=== PATIENT | male | born 1985 | race Caucasian/White ===

== ENCOUNTER 2024-08-15 07:02 | Observation (INO) | payer OTHER, SELFPAY ==
[2024-08-15] VITALS (7 sets, daily range): BP systolic 139–182; BP diastolic 84–109; PULSE 18–94; RESP 15–97; TEMP 36.1–36.8; O2SAT 94–99; BMI 32.6
--- NOTE | 2024-08-15 07:13 | EDS_ITS ---
HPI History of Present Illness Chief Complaint: Substance Abuse Informant: patient Narrative Narrative: 38-year-old male presenting to the emergency room seeking detox from opiates. Patient states he is a daily user of OxyContin. States he has been using regularly for several years. He has had 1 prior attempt to quit on his own. Currently on probation and had a failed drug screen. credit products officer advised him to seek treatment. He states that he is linked with [facility]. He denies any IV drug use or snorting/inhalation. Patient is a tobacco user. He has a history of hypertension. He sees home his family practice. He notes irritability diarrhea shakiness decreased sleep. Patient states he has rare alcohol use. [facility] Medical History (Updated 08/15/24 @ 07:[address] Ian Garcia DO) Hypertension Allergy/AdvReac Type Severity Reaction Status Date / Time No Known Allergies Allergy Verified 08/15/24 07:03 Social History (Updated 08/15/24 @ 07:[address] Ian Garcia DO) Smoking Status: Never smoker substance use type: opiates ROS ROS ED ROS Narrative Shakiness Constitutional Constitutional ED: Reports sweats; Denies chills, fever(s) or weight loss Eyes Eyes: Denies change in vision or diplopia ENT ENT ED: Denies ear pain, rhinorrhea or sore throat Cardiovascular Cardiovascular: Denies chest pain, orthopnea, palpitations or racing heartbeat Respiratory/Chest Respiratory/Chest: Reports other Details: Chronic cough (tobacco user) ; Denies dyspnea or orthopnea Gastrointestinal Gastrointestinal: Reports diarrhea and other Details: Decreased appetite ; Denies abdominal pain, nausea or vomiting Genitourinary Genitourinary ED: Denies dysuria, hematuria or urinary frequency Musculoskeletal Musculoskeletal: Denies arthralgias or myalgias Integumentary Denies abscess or rash Neurologic Neurologic: Denies headache(s) or weakness Psychiatric Psychiatric: Reports anxiety and other Details: Irritability ; Denies depression, suicidal ideation or suicidal thoughts Endocrine Endocrinology: Denies polydipsia, polyphagia or polyuria Allergic/Immunologic Allergic/Immunologic ED: Denies mouth swelling, tongue swelling or urticaria EXAM Physical Exam Const Vital Signs: 08/15/24 07:03 Temperature 96.9 F L Temperature Source Temporal Pulse Rate 18 L Respiratory Rate 97 H Blood Pressure 179/104 H Blood Pressure Mean 129 Oxygen Delivery Method Room Air Positive well nourished and well developed General Appearance ED: well developed and NAD HEENT Reports normocephalic, head/scalp atraumatic and moist mucous membranes Eyes PERRL and EOMs intact bilaterally Neck no lymphadenopathy, supple and no JVD Resp normal respiratory effort and clear to auscultation bilaterally Cardio regular rate, regular rhythm and no murmurs GI normal to inspection, nondistended, normoactive bowel sounds and non-tender Palpation: soft Back/Spine no CVA tenderness and normal ROM Extremity normal to inspection General Extremety ED: Negative for edema General Extremity: Negative for edema Neuro oriented x3 and CN's II-XII intact bilaterally Sensorium / Orientation: alert Motor Exam: strength 5/5 throughout Psych mental status grossly normal Mood & Affect: anxious; Negative for depressed or tearful Skin no rashes or lesions noted and no wounds MDM MDM MDM Narrative Medical decision making narrative: Differential diagnosis includes but not limited to alcohol use disorder mixed substance use disorder opiate withdrawal anxiety depression ED screening addiction labs were ordered. Slight elevation in white count is noted which I think is nonspecific. His toxicology is negative an ALT of 122 AST of 74 normal bilirubin. Plan I will speak to the hospitalist regarding potential admission to ramp program History & Record Review Discussion w/independent historian: Patient Lab Data Attestation: I reviewed the patient's lab results. Labs: Laboratory Results - last 24 hr 08/15/24 08/15/24 08/15/24 08:05 08:05 08:15 WBC Cancelled Corrected WBC Cancelled RBC Cancelled Hgb Cancelled Hct Cancelled MCV Cancelled MCH Cancelled MCHC Cancelled RDW Std Deviation Cancelled RDW Coeff of Satnam Cancelled Plt Count Cancelled MPV Cancelled Immature Gran % (Auto) Cancelled Neut % (Auto) Cancelled Lymph % (Auto) Cancelled [place] % (Auto) Cancelled Eos % (Auto) Cancelled Baso % (Auto) Cancelled Absolute Neuts (auto) Cancelled Absolute Lymphs (auto) Cancelled Total Counted Cancelled Neutrophils % (Manual) Cancelled Band Neutrophils % Cancelled Lymphocytes % (Manual) Cancelled Monocytes % (Manual) Cancelled Eosinophils % (Manual) Cancelled Basophils % (Manual) Cancelled Metamyelocytes % Cancelled Myelocytes % Cancelled Promyelocytes % Cancelled Blast Cells % Cancelled Plasma Cell % (Manual) Cancelled Other Cells % Cancelled Nucleated RBC % Cancelled Nucleated RBCs/100 WBC Cancelled Differential Comment Cancelled Diff Path Review Cancelled Hypersegmented Neuts Cancelled Atypical Lymphocytes Cancelled Reactive Lymphocytes Cancelled Smudge Cells Cancelled Toxic Granulation Cancelled Toxic Vacuolation Cancelled Dohle Bodies Cancelled Olive Rods Cancelled Platelet Estimate Cancelled Plt Morphology Comment Cancelled RBC Morphology Cancelled Cancelled Polychromasia Cancelled Hypochromasia Cancelled Basophilic Stippling Cancelled Anisocytosis Cancelled Microcytosis Cancelled Macrocytosis Cancelled Spherocytes Cancelled Sickle Cells Cancelled Target Cells Cancelled Tear Drop Cells Cancelled Ovalocytes Cancelled Stomatocytes Cancelled [place] Bodies Cancelled Oleg Cells Cancelled Bite Cells Cancelled Crenated Cell Cancelled Acanthocytes (Spur) Cancelled Rouleaux Cancelled Schistocytes Cancelled Sodium 140 Potassium 3.7 Chloride 102 Carbon Dioxide 26.0 Anion Gap 12 BUN 9 Creatinine 0.85 Estim Creat Clear Calc 139.10 Est GFR (MDRD) Af Amer 127 Est GFR (MDRD) Non-Af 105 BUN/Creatinine Ratio 10.5 Glucose 120 H Calcium 9.3 Total Bilirubin 0.50 AST 74 H ALT 122 H Alkaline Phosphatase 103 Total Protein 7.3 Albumin 3.9 Globulin 3.4 Albumin/Globulin Ratio 1.1 Urine Opiates Screen NEGATIVE Urine Methadone Screen NEGATIVE Ur Barbiturates Screen NEGATIVE Ur Phencyclidine Scrn NEGATIVE Ur Amphetamines Screen NEGATIVE MDMA (Ecstasy) Screen NEGATIVE U Benzodiazepines Scrn NEGATIVE Urine Cocaine Screen NEGATIVE U Cannabinoids Screen NEGATIVE Ur Drug Screen Comment Ethyl Alcohol < 3.0 08/15/24 08:38 WBC 11.2 H Corrected WBC RBC 5.53 Hgb 17.3 H Hct 49.4 MCV 89.3 MCH 31.3 MCHC 35.0 RDW Std Deviation 41.4 RDW Coeff of Satnam 12.6 Plt Count 356 MPV 8.7 Immature Gran % (Auto) 0.800 Neut % (Auto) 60.6 Lymph % (Auto) 28.0 [place] % (Auto) 8.0 Eos % (Auto) 1.8 Baso % (Auto) 0.8 Absolute Neuts (auto) 6.8 Absolute Lymphs (auto) 3.15 Total Counted Neutrophils % (Manual) Band Neutrophils % Lymphocytes % (Manual) Monocytes % (Manual) Eosinophils % (Manual) Basophils % (Manual) Metamyelocytes % Myelocytes % Promyelocytes % Blast Cells % Plasma Cell % (Manual) Other Cells % Nucleated RBC % 0 Nucleated RBCs/100 WBC Differential Comment Diff Path Review Hypersegmented Neuts Atypical Lymphocytes Reactive Lymphocytes Smudge Cells Toxic Granulation Toxic Vacuolation Dohle Bodies Olive Rods Platelet Estimate Plt Morphology Comment RBC Morphology Polychromasia Hypochromasia Basophilic Stippling Anisocytosis Microcytosis Macrocytosis Spherocytes Sickle Cells Target Cells Tear Drop Cells Ovalocytes Stomatocytes [place] Bodies Oleg Cells Bite Cells Crenated Cell Acanthocytes (Spur) Rouleaux Schistocytes Sodium Potassium Chloride Carbon Dioxide Anion Gap BUN Creatinine Estim Creat Clear Calc Est GFR (MDRD) Af Amer Est GFR (MDRD) Non-Af BUN/Creatinine Ratio Glucose Calcium Total Bilirubin AST ALT Alkaline Phosphatase Total Protein Albumin Globulin Albumin/Globulin Ratio Urine Opiates Screen Urine Methadone Screen Ur Barbiturates Screen Ur Phencyclidine Scrn Ur Amphetamines Screen MDMA (Ecstasy) Screen U Benzodiazepines Scrn Urine Cocaine Screen U Cannabinoids Screen Ur Drug Screen Comment Ethyl Alcohol Discharge Plan Dx/Rx/DC Orders Clinical Impression: Substance use disorder, Opiate withdrawal Disposition Disposition: Acute Care Hospital [facility]
[2024-08-15 08:39] LABS: ALB/GLOB Ratio 1.1 RATIO (0.9-2.4); AST(SGOT) 74 U/L (15-37); Alanine Aminotransfer ALT/SGPT 122 U/L (16-61); Albumin, Serum 3.9 g/dL (3.2-5.0); Alkaline Phosphatase 103 U/L (45-117); Anion Gap 12 (5-15); BUN 9 mg/dL (7-18); BUN/Creat Ratio 10.5 RATIO (10-20); Calcium,Total 9.3 mg/dL (8.5-10.1); Chloride 102 mmol/L (98-107); Creatinine, Serum 0.85 mg/dL (0.70-1.30); EST Glomerular Filtration Rate 105 mL/min (>60); Est Glom Filt Rate - Afr Amer 127 mL/min (>60); Globulin 3.4 g/dL (2.2-4.2); Glucose 120 mg/dL (74-106); Potassium 3.7 mmol/L (3.5-5.1); Protein, Total 7.3 g/dL (6.4-8.2); Sodium Level 140 mmol/L (136-145)
[2024-08-15 08:40] LABS: Alcohol, Blood (Medical)-Serum < 3.0 mg/dL
[2024-08-15 08:41] LABS: Amphetamine Urine VISTA NEGATIVE (<1000 ng/mL); Barbiturate Urine VISTA NEGATIVE (< 200 ng/mL); Benzodiazepine Urine VISTA NEGATIVE (< 200 ng/mL); Cocaine Urine VISTA NEGATIVE (< 300 ng/mL); Ecstacy Urine VISTA NEGATIVE (< 500 ng/mL); Methadone Urine VISTA NEGATIVE (< 300 ng/mL); PCP Urine VISTA NEGATIVE (< 25 ng/mL); THC Urine VISTA NEGATIVE (< 50 ng/mL); Vista UDS pH Range 6
[2024-08-15 08:44] LABS: Absolute Lymphocyte Count 3.15 X10^3/uL (0.83-4.51); Absolute Neutrophil Count 6.8 X10^3/uL (2.0-7.7); Basophil# 0.09 X10^3/uL; Basophil% 0.8 % (0-1); Eosinophils% 1.8 % (0-5); Hematocrit 49.4 % (40-54); Hemoglobin 17.3 g/dL (13.0-16.5); Lymphocyte # 3.15 X10^3/ul (0.83-4.51); Mean Corpuscular Hgb 31.3 pg (27.0-32.0); Mean Corpuscular Volume 89.3 fL (80-94); Mean Platelet Vol. 8.7 fl (6.2-12.0); NRBC Flagged by Analyzer 0 % (0-5); Neutrophil # 6.81 X10^3/uL (2.7-7.7); Neutrophil % 60.6 % (47-70); Platelet Count 356 K/mm3 (150-450); RBC Distribution Width CV 12.6 % (11.6-14.6); RBC Distribution Width SD 41.4 fl (35.1-43.9); Red Blood Count 5.53 M/mm3 (4.6-6.2); White Blood Count 11.2 K/mm3 (4.4-11.0)
--- NOTE | 2024-08-15 08:57 | HP.PCM.HOS_ITS ---
HPI - General General Date of Admission: 08/15/24 Date of Service: 08/24/24 Chief Complaint: Desire for detoxification HPI Narrative KOFI VELASCO, is a 38 M who presents who presented with abdominal cramps tremulousness anxiety as well as diarrhea. Patient admitted to chronic use of opioids?OxyContin. On average he uses almost 40 mg daily. He was referred to the ED by 180. An assessment of acute opioid withdrawal was made patient admitted to regular nursing floor for further management [facility] Medical History (Updated 08/15/24 @ 09:[address] Jass Mahajan MD) Hypertension Home Medications ?Medication ?Instructions ?Recorded ?Last Taken ?Type lisinopril 20 1 tab PO DAILY 08/15/24 Unknown History mg-hydrochlorothiazide 25 mg tablet Allergy/AdvReac Type Severity Reaction Status Date / Time No Known Allergies Allergy Verified 08/15/24 07:03 Social History Smoking Status: Never smoker substance use type: opiates ROS ROS Narrative GENERAL: Cold sweat HEENT: denies headache, sinus congestion, or drainage, dysphagia RESPIRATORY: denies cough, sputum production, shortness of breath, dyspnea on exertion CARDIAC: denies chest pain, palpitations, orthopnea, PND GASTROINTESTINAL: abdominal pain, diarrhea GENITOURINARY: denies dysuria, urgency, frequency, heamaturia EXTREMITY: denies swelling MUSCULOSKELETAL: denies current joint pain or tenderness NEUROLOGIC: denies focal numbness, weakness, tingling HEMATOLOGIC: denies easy bruising and/or hemorrhage INTEGUMENT: denies rashes PSYCHIATRIC: Anxiety Vital Signs Vital Signs Vital Signs: 08/15/24 07:03 Temperature 96.9 F L Temperature Source Temporal Pulse Rate 18 L Respiratory Rate 97 H Blood Pressure 179/104 H Blood Pressure Mean 129 Oxygen Delivery Method Room Air Weight Weight: 103.328 kg Body Mass Index (BMI) 32.6 Physical Exam Narrative GENERAL: cooperative HEENT: Atraumatic; normocephalic EYES; Anicteric, Normal Conjunctiva NECK; supple, normal thyroid, RESPIRATORY: Diminished to auscultation CARDIOVASCULAR: Regular S1 S2, GI: soft, normoactive bowel sounds, : No Renal angle tenderness; EXTREMITIES: No edema, no clubbing, MUSCULOSKELETAL: no muscle wasting NEURO: Awake; no lateralizing signs. SKIN: No Rash PSYCH; Flat affect Results Lab / Micro Data 08/15/24 08:38 08/15/24 08:05 Labs: Laboratory Results - last 24 hr 08/15/24 08:05: WBC Cancelled, Corrected WBC Cancelled, RBC Cancelled, Hgb Cancelled, Hct Cancelled, MCV Cancelled, MCH Cancelled, MCHC Cancelled, RDW Std Deviation Cancelled, RDW Coeff of Satnam Cancelled, Plt Count Cancelled, MPV Cancelled, Immature Gran % (Auto) Cancelled, Neut % (Auto) Cancelled, Lymph % (Auto) Cancelled, [place] % (Auto) Cancelled, Eos % (Auto) Cancelled, Baso % (Auto) Cancelled, Absolute Neuts (auto) Cancelled, Absolute Lymphs (auto) Cancelled, Total Counted Cancelled, Neutrophils % (Manual) Cancelled, Band Neutrophils % Cancelled, Lymphocytes % (Manual) Cancelled, Monocytes % (Manual) Cancelled, Eosinophils % (Manual) Cancelled, Basophils % (Manual) Cancelled, Metamyelocytes % Cancelled, Myelocytes % Cancelled, Promyelocytes % Cancelled, Blast Cells % Cancelled, Plasma Cell % (Manual) Cancelled, Other Cells % Cancelled, Nucleated RBC % Cancelled, Nucleated RBCs/100 WBC Cancelled, Differential Comment Cancelled, Diff Path Review Cancelled, Hypersegmented Neuts Cancelled, Atypical Lymphocytes Cancelled, Reactive Lymphocytes Cancelled, Smudge Cells Cancelled, Toxic Granulation Cancelled, Toxic Vacuolation Cancelled, Dohle Bodies Cancelled, Olive Rods Cancelled, Platelet Estimate Cancelled, Plt Morphology Comment Cancelled, RBC Morphology Cancelled 08/15/24 08:05: RBC Morphology Cancelled, Polychromasia Cancelled, Hypochromasia Cancelled, Basophilic Stippling Cancelled, Anisocytosis Cancelled, Microcytosis Cancelled, Macrocytosis Cancelled, Spherocytes Cancelled, Sickle Cells Cancelled, Target Cells Cancelled, Tear Drop Cells Cancelled, Ovalocytes Cancelled, Stomatocytes Cancelled, [place] Bodies Cancelled, Oleg Cells Cancelled, Bite Cells Cancelled, Crenated Cell Cancelled, Acanthocytes (Spur) Cancelled, Rouleaux Cancelled, Schistocytes Cancelled, Sodium 140, Potassium 3.7, Chloride 102, Carbon Dioxide 26.0, Anion Gap 12, BUN 9, Creatinine 0.85, Estim Creat Clear Calc 139.10, Est GFR (MDRD) Af Amer 127, Est GFR (MDRD) Non-Af 105, BUN/Creatinine Ratio 10.5, Glucose 120 H, Calcium 9.3, Total Bilirubin 0.50, AST 74 H, ALT 122 H, Alkaline Phosphatase 103, Total Protein 7.3, Albumin 3.9, Globulin 3.4, Albumin/Globulin Ratio 1.1, Ethyl Alcohol < 3.0 08/15/24 08:15: Urine Opiates Screen NEGATIVE, Urine Methadone Screen NEGATIVE, Ur Barbiturates Screen NEGATIVE, Ur Phencyclidine Scrn NEGATIVE, Ur Amphetamines Screen NEGATIVE, MDMA (Ecstasy) Screen NEGATIVE, U Benzodiazepines Scrn NEGATIVE, Urine Cocaine Screen NEGATIVE, U Cannabinoids Screen NEGATIVE, Ur Drug Screen Comment 08/15/24 08:38: WBC 11.2 H, RBC 5.53, Hgb 17.3 H, Hct 49.4, MCV 89.3, MCH 31.3, MCHC 35.0, RDW Std Deviation 41.4, RDW Coeff of Satnam 12.6, Plt Count 356, MPV 8.7, Immature Gran % (Auto) 0.800, Neut % (Auto) 60.6, Lymph % (Auto) 28.0, [place] % (Auto) 8.0, Eos % (Auto) 1.8, Baso % (Auto) 0.8, Absolute Neuts (auto) 6.8, Absolute Lymphs (auto) 3.15, Nucleated RBC % 0 Assessment & Plan Assessment/Plan (1) Opiate withdrawal: (2) Hypertension: PLAN: Plan Patient is a 38-year-old gentleman with history of chronic opioid dependence presented with acute opioid withdrawal 1. 1. Acute opioid withdrawal - Patient has been admitted to regular nursing floor, managed buprenorphine taper along with other adjunctive medications for medical stabilization 2. Hypertension ? Blood pressure controlled, home medications continued with dose adjustment as needed 3. Class I obesity with BMI of 32.7 ? Complicating care weight loss advised 4. Tobacco dependence ? Counseled on cessation, offered nicotine patch for tobacco cravings 5. DVT prophylaxis ? Low risk to encourage ambulation Time spent in the patient's overall evaluation,decision-making process, review of diagnostic data, adjustment of management, discussion with other providers, nursing nursing and ancillary staff involved in patient's care documentation, 55 Minutes Charges/Coding Visit Charges Inpatient E&M: 14943 Init Hosp L2
--- NOTE | 2024-08-15 10:44 | ADDICTION ---
This communications writer met with patient to conduct ASAM, MSE, and AUDIT assessments and to begin discussing d/c planning. Patient declined residential recommendation but reports he has a clinician at [facility] in [facility]. He denies a need for transport once discharged.
[2024-08-15] MEDS: Gabapentin 300 MG Capsule PO (13:23)
[2024-08-15] MEDS: Acetaminophen 500 MG Tablet PO (16:39)
[2024-08-15] MEDS: Methocarbamol 750 MG Tablet PO (20:36)
[2024-08-15] MEDS: hydrOXYzine PAM 25 MG Capsule 50 MG PO (20:36)
[2024-08-15] MEDS: traZODone 100 MG Tablet PO (21:53)
[2024-08-15] MEDS: cloNIDine HCl 0.1 MG Tablet PO (22:03)
[2024-08-16] VITALS (7 sets, daily range): BP systolic 143–166; BP diastolic 85–107; PULSE 74–90; RESP 16–17; TEMP 36.6–36.8; O2SAT 95–97
--- NOTE | 2024-08-16 07:32 | PN.HOSP_ITS ---
Reason for Visit Reason for Visit: Diagnoses Opioid use, unspecified with withdrawal (08/15/24) Essential (primary) hypertension (08/15/24) Subjective Subjective Patient seen has tolerated buprenorphine taper well so far. Blood pressure slightly elevated this a.m. Objective Data Objective Data Vital Signs: Vital Signs Temp Pulse Resp BP Pulse Ox O2 Del Method 97.8 F 74 16 144/94 H 97 Room Air 08/16/24 04:44 08/16/24 04:44 08/16/24 04:44 08/16/24 04:44 08/16/24 04:44 08/16/24 04:44 Oxygen Delivery Method Room Air Weight: 103.328 kg Body Mass Index (BMI) 32.6 Intake & Output: Intake and Output for Last 24 Hours 08/14/24 08/15/24 08/16/24 23:59 23:59 23:59 Intake Total 880 / 880 200 / 200 Balance 880 / 880 200 / 200 Lab / Micro Data 08/15/24 08:38 08/15/24 08:05 Labs: Laboratory Results - last 24 hr 08/15/24 08:05: WBC Cancelled, Corrected WBC Cancelled, RBC Cancelled, Hgb Cancelled, Hct Cancelled, MCV Cancelled, MCH Cancelled, MCHC Cancelled, RDW Std Deviation Cancelled, RDW Coeff of Satnam Cancelled, Plt Count Cancelled, MPV Cancelled, Immature Gran % (Auto) Cancelled, Neut % (Auto) Cancelled, Lymph % (Auto) Cancelled, [place] % (Auto) Cancelled, Eos % (Auto) Cancelled, Baso % (Auto) Cancelled, Absolute Neuts (auto) Cancelled, Absolute Lymphs (auto) Cancelled, Total Counted Cancelled, Neutrophils % (Manual) Cancelled, Band Neutrophils % Cancelled, Lymphocytes % (Manual) Cancelled, Monocytes % (Manual) Cancelled, Eosinophils % (Manual) Cancelled, Basophils % (Manual) Cancelled, Metamyelocytes % Cancelled, Myelocytes % Cancelled, Promyelocytes % Cancelled, Blast Cells % Cancelled, Plasma Cell % (Manual) Cancelled, Other Cells % Cancelled, Nucleated RBC % Cancelled, Nucleated RBCs/100 WBC Cancelled, Differential Comment Cancelled, Diff Path Review Cancelled, Hypersegmented Neuts Cancelled, Atypical Lymphocytes Cancelled, Reactive Lymphocytes Cancelled, Smudge Cells Cancelled, Toxic Granulation Cancelled, Toxic Vacuolation Cancelled, Dohle Bodies Cancelled, Olive Rods Cancelled, Platelet Estimate Cancelled, Plt Morphology Comment Cancelled, RBC Morphology Cancelled 08/15/24 08:05: RBC Morphology Cancelled, Polychromasia Cancelled, Hypochromasia Cancelled, Basophilic Stippling Cancelled, Anisocytosis Cancelled, Microcytosis Cancelled, Macrocytosis Cancelled, Spherocytes Cancelled, Sickle Cells Cancelled, Target Cells Cancelled, Tear Drop Cells Cancelled, Ovalocytes Cancelled, Stomatocytes Cancelled, [place] Bodies Cancelled, [place] Cells Cancelled, Bite Cells Cancelled, Crenated Cell Cancelled, Acanthocytes (Spur) Cancelled, Rouleaux Cancelled, Schistocytes Cancelled, Sodium 140, Potassium 3.7, Chloride 102, Carbon Dioxide 26.0, Anion Gap 12, BUN 9, Creatinine 0.85, Estim Creat Clear Calc 139.10, Est GFR (MDRD) Af Amer 127, Est GFR (MDRD) Non-Af 105, BUN/Creatinine Ratio 10.5, Glucose 120 H, Calcium 9.3, Total Bilirubin 0.50, AST 74 H, ALT 122 H, Alkaline Phosphatase 103, Total Protein 7.3, Albumin 3.9, Globulin 3.4, Albumin/Globulin Ratio 1.1, Ethyl Alcohol < 3.0 08/15/24 08:15: Urine Opiates Screen NEGATIVE, Urine Methadone Screen NEGATIVE, Ur Barbiturates Screen NEGATIVE, Ur Phencyclidine Scrn NEGATIVE, Ur Amphetamines Screen NEGATIVE, MDMA (Ecstasy) Screen NEGATIVE, U Benzodiazepines Scrn NEGATIVE, Urine Cocaine Screen NEGATIVE, U Cannabinoids Screen NEGATIVE, Ur Drug Screen Comment 08/15/24 08:38: WBC 11.2 H, RBC 5.53, Hgb 17.3 H, Hct 49.4, MCV 89.3, MCH 31.3, MCHC 35.0, RDW Std Deviation 41.4, RDW Coeff of Satnam 12.6, Plt Count 356, MPV 8.7, Immature Gran % (Auto) 0.800, Neut % (Auto) 60.6, Lymph % (Auto) 28.0, [place] % (Auto) 8.0, Eos % (Auto) 1.8, Baso % (Auto) 0.8, Absolute Neuts (auto) 6.8, Absolute Lymphs (auto) 3.15, Nucleated RBC % 0 Physical Exam Narrative GENERAL: cooperative HEENT: Atraumatic; normocephalic EYES; Anicteric, Normal Conjunctiva NECK; supple, normal thyroid, RESPIRATORY: Diminished to auscultation CARDIOVASCULAR: Regular S1 S2, GI: soft, normoactive bowel sounds, : No Renal angle tenderness; EXTREMITIES: No edema, no clubbing, MUSCULOSKELETAL: no muscle wasting NEURO: Awake; no lateralizing signs. SKIN: No Rash PSYCH; Flat affect Assessment & Plan Assessment/Plan (1) Opiate withdrawal: (2) Hypertension: PLAN: Plan Patient is a 38-year-old gentleman with history of chronic opioid dependence presented with acute opioid withdrawal 1. 1. Acute opioid withdrawal - Patient has been admitted to regular nursing floor, managed buprenorphine taper along with other adjunctive medications for medical stabilization ? 08/16/2024;Patient seen has tolerated buprenorphine taper well so far. 2. Hypertension ? Blood pressure controlled, home medications continued with dose adjustment as needed ? 08/16/2024; blood pressure control so far not optimal we will continue to monitor and subsequent adjustment made if needed 3. Class I obesity with BMI of 32.7 ? Complicating care weight loss advised 4. Tobacco dependence ? Counseled on cessation, offered nicotine patch for tobacco cravings 5. DVT prophylaxis ? Low risk to encourage ambulation Time spent in the patient's overall evaluation,decision-making process, review of diagnostic data, adjustment of management, discussion with other providers, nursing nursing and ancillary staff involved in patient's care documentation,36 Minutes Charges/Coding Visit Charges Inpatient E&M: 03256 Subs Hosp L2
[2024-08-16] MEDS: hydroCHLOROthiazide 25 MG Tablet PO (07:57)
[2024-08-16] MEDS: Lisinopril 20 MG Tablet PO (07:57)
[2024-08-16] MEDS: cloNIDine HCl 0.1 MG Tablet PO ×3 (08:02→23:44)
[2024-08-16] MEDS: traZODone 100 MG Tablet PO (08:02)
[2024-08-16] MEDS: Methocarbamol 750 MG Tablet PO ×2 (08:02→15:10)
--- NOTE | 2024-08-16 18:33 | NURSING ---
This RN noticed pt was walking in hallway with a pizza in his hands. I followed him back to the room and saw his phone laying on table. I asked him how he got his phone and he said that it has been out this whole time. After I explained to him that he signed a contract that he could not have it while in the program. He turned it off and when I went up to get zip ties to open the tote he then confessed that he opened it and took the phone out. Dr. Mahajan made aware.
[2024-08-16] MEDS: traZODone 50 MG Tablet PO (23:44)
[2024-08-16] MEDS: Acetaminophen 500 MG Tablet PO (23:44)
[2024-08-17 05:12] VITALS: BP 156/103; PULSE 72; RESP 16; TEMP 36.4; O2SAT 98
--- NOTE | 2024-08-17 07:23 | PCM.PN.HOSP ---
Reason for Visit Reason for Visit: Diagnoses Opioid use, unspecified with withdrawal (08/15/24) Essential (primary) hypertension (08/15/24) Subjective Subjective Patient seen currently without symptoms. Plan is for patient to be assessed for possible discharge Objective Data Objective Data Vital Signs: Vital Signs Temp Pulse Resp BP Pulse Ox O2 Del Method 97.5 F L 72 16 156/103 H 98 Room Air 08/17/24 05:12 08/17/24 05:12 08/17/24 05:12 08/17/24 05:12 08/17/24 05:12 08/17/24 05:12 Oxygen Delivery Method Room Air Weight: 103.328 kg Body Mass Index (BMI) 32.6 Intake & Output: Intake and Output for Last 24 Hours 08/15/24 08/16/24 08/17/24 23:59 23:59 23:59 Intake Total 880 / 880 1000 / 1000 300 / 300 Balance 880 / 880 1000 / 1000 300 / 300 Lab / Micro Data 08/15/24 08:38 08/15/24 08:05 Physical Exam Narrative GENERAL: cooperative HEENT: Atraumatic; normocephalic EYES; Anicteric, Normal Conjunctiva NECK; supple, normal thyroid, RESPIRATORY: Diminished to auscultation CARDIOVASCULAR: Regular S1 S2, GI: soft, normoactive bowel sounds, : No Renal angle tenderness; EXTREMITIES: No edema, no clubbing, MUSCULOSKELETAL: no muscle wasting NEURO: Awake; no lateralizing signs. SKIN: No Rash PSYCH; Flat affect Assessment & Plan Assessment/Plan (1) Opiate withdrawal: (2) Hypertension: PLAN: Plan Patient is a 38-year-old gentleman with history of chronic opioid dependence presented with acute opioid withdrawal 1. 1. Acute opioid withdrawal - Patient has been admitted to regular nursing floor, managed buprenorphine taper along with other adjunctive medications for medical stabilization ? 08/16/2024;Patient seen has tolerated buprenorphine taper well so far. ? 08/17/2024; plan is for patient to be discharged to follow-up with [facility] counseling services as 2. Hypertension ? Blood pressure controlled, home medications continued with dose adjustment as needed ? 08/16/2024; blood pressure control so far not optimal we will continue to monitor and subsequent adjustment made if needed 3. Class I obesity with BMI of 32.7 ? Complicating care weight loss advised 4. Tobacco dependence ? Counseled on cessation, offered nicotine patch for tobacco cravings 5. DVT prophylaxis ? Low risk to encourage ambulation Time spent in the patient's overall evaluation,decision-making process, review of diagnostic data, adjustment of management, discussion with other providers, nursing nursing and ancillary staff involved in patient's care documentation,36 Minutes
[2024-08-17 08:00] VITALS: BP 171/109; PULSE 79; RESP 18; TEMP 36.8; O2SAT 95
[2024-08-17] MEDS: Lisinopril 20 MG Tablet PO (08:06)
[2024-08-17] MEDS: hydroCHLOROthiazide 25 MG Tablet PO (08:06)
--- NOTE | 2024-08-17 08:14 | PCM.DC.SUM ---
Providers Date of Admission: 08/15/24 Date of Discharge: 08/17/24 Primary Care Physician: ANIYA Arenas Reason For Visit: ACUTE OPIOID WITHDRAWAL Diagnosis Discharge Diagnosis (1) Opiate withdrawal: Status: Acute Code(s): F11.93 - Opioid use, unspecified with withdrawal (2) Hypertension: Status: Chronic Code(s): I10 - Essential (primary) hypertension Plan Patient is a 38-year-old gentleman with history of chronic opioid dependence presented with acute opioid withdrawal 1. 1. Acute opioid withdrawal - Patient has been admitted to regular nursing floor, managed buprenorphine taper along with other adjunctive medications for medical stabilization ? 08/16/2024;Patient seen has tolerated buprenorphine taper well so far. ? 08/17/2024; plan is for patient to be discharged to follow-up with [facility] services as 2. Hypertension ? Blood pressure controlled, home medications continued with dose adjustment as needed ? 08/16/2024; blood pressure control so far not optimal we will continue to monitor and subsequent adjustment made if needed 3. Class I obesity with BMI of 32.7 ? Complicating care weight loss advised 4. Tobacco dependence ? Counseled on cessation, offered nicotine patch for tobacco cravings 5. DVT prophylaxis ? Low risk to encourage ambulation Time spent in the patient's overall evaluation,decision-making process, review of diagnostic data, adjustment of management, discussion with other providers, nursing nursing and ancillary staff involved in patient's care documentation,36 Minutes Medications at Discharge Home Medications lisinopril 20 mg-hydrochlorothiazide 25 mg tablet 1 tab PO DAILY 08/15/24 Physical Exam Narrative GENERAL: cooperative HEENT: Atraumatic; normocephalic EYES; Anicteric, Normal Conjunctiva NECK; supple, normal thyroid, RESPIRATORY: Diminished to auscultation CARDIOVASCULAR: Regular S1 S2, GI: soft, normoactive bowel sounds, : No Renal angle tenderness; EXTREMITIES: No edema, no clubbing, MUSCULOSKELETAL: no muscle wasting NEURO: Awake; no lateralizing signs. SKIN: No Rash PSYCH; Flat affect Weight / BMI Weight Weight: 103.328 kg Body Mass Index (BMI) 32.6 ABG / Lab / Microbiology Data 08/15/24 08:38 08/15/24 08:05 D/C Instructions Discharge Diet: No restrictions Discharge Activity: Return to Normal Activity Call your doctor if you observe: Fever of 101 or Higher, Shortness of breath, Fainting spells and Chest pain Meaningful Use Info Meaningful Use Meaningful Use Diagnoses (Choose all that apply): None applicable Ischemic Stroke Statin Dosing Therapy Reference: STATIN DOSE THERAPY REFERENCE: * Patients > 75 years receive moderate or high dose statin therapy. * Patients 75 years or YOUNGER should receive HIGH intensity statin dose unless contraindicated. You will be required to document reason for non-treatment if statin daily dose does not meet guidelines. HIGH DOSE STATIN THERAPY DAILY Atorvastatin > than or = to 40 mg Rosuvastatin > than or = to 20 mg Amlodipine + Atorvastatin > than or = to 2.5/40 mg Ezetimibe + Simvastatin 10/80 mg Simvastatin 80mg Discharge Plan Admission Admit Date/Time: 08/15/24 08:55 Attending Provider: Jass Mahajan Primary Care Provider: Bertha Victoria Discharge Orders/Prescriptions Prescriptions: Continued lisinopril-hydrochlorothiazide 20-25 mg tablet 1 tab PO DAILY Referrals / Follow Up: Pooja Hyde MD [Non-Staff] - Bertha Victoria PA [Primary Care Provider] - Disposition Disposition (needs filled in before D/C Order can be placed): Home, Self Care Charges/Coding Visit Charges Inpatient E&M: [id number] Disch Hosp >30min
[2024-08-17] MEDS: cloNIDine HCl 0.1 MG Tablet PO (09:43)
--- OUTSIDE RECORDS SUMMARY | 2024-08-30 16:26 | XMS RPT_ITS | CCD ---
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 Name Role Phone LESLIE CHAN Attending Unavailable LESLIE CHAN Primary Care Unavailable LESLIE CHAN Admitting Unavailable ERENDIRA BEAULIEU PAC Referring Unavailable ERENDIRA BEAULIEU PAC Consulting Unavailable PROVIDER, UNKNOWN Consulting Unavailable Erendira Beaulieu PA-C Unavailable Gabriella PAEZN, Kenzie Unavailable Rajendra NATHAN, Damir Moreau Unavailable Kelsi Rossi MA Unavailable Unavailable Bay PAEZN, Malgorzata Unavailable Unavailable Suzan FREEDMAN, Sharyn Hobbs Unavailable Unavaila mike Gentile LPN, Aminta Unavailable Unavailable Kandice PAEZN, Marni Alejo Unavailable Unavailab henry Ramos MD, Mayito Hobbs Unavailable Unavailable Unavailable Barby Al MA Unavailable Unavailable Medications Current Medications Medication Drug Class(es) Dates Sig (Normalized) Sig (Original) FLUoxetine 20 mg oral tablet (9 sources) Serotonin Reuptake Inhibitor Start: 03-24-2024 End: 08-05-2024 FLUoxetine 20 mg tablet ; 1 (one) tablet daily for 30 days Quantity: 30 {Tablet} Refills: 1 Ordered: 05-Aug-2024 KATJA Beaulieu Start: 05-Aug-2024 hydroCHLOROthiazide 25 mg / lisinopril 20 mg oral tablet (10 sources) Thiazide Diuretic, Angiotensin Converting Enzyme Inhibitor Start: 07-01-2024 lisinopriL 20 mg-hydrochlorot hiazide 25 mg tablet ; 1 (one) Tablet daily for 0 days Quantity: 90 {Tablet} Refills: 0 Ordered: 01-Jul-2024 KATJA Beaulieu Start: 01-Jul-2024 Start: 05-18-2024 lisinopriL 20 mg-hydrochlorothiazide 25 mg tablet ; 1 (one) Tablet daily for 0 days Quantity: 30 {Tablet} Refills: 0 Ordered: 18-May-2024 KATJA Beaulieu Start: 18-May-2024 Start: 03-24-2024 lisinopriL 20 mg-hydrochlorothiazide 25 mg tablet ; 1 (one) Tablet daily for 0 days Quantity: 90 {Tablet} Refills: 0 Ordered: 24-Mar-2024 KATJA Beaulieu Start: 24-Mar-2024 Start: 09-01-2023 lisinopriL 20 mg-hydrochlorothiazide 25 mg tablet ; 1 (one) Tablet daily for 30 days Quantity: 90 {Tablet} Refills: 1 Ordered: 01-Sep-2023 MD Damir Drew Start: 01-Sep-2023 Completed/Discontinued Medications Medication Drug Class(es) Dates Sig (Normalized) Sig (Original) acetaminophen 325 mg / HYDROcodone bitartrate 5 mg oral tablet (10 sources) Opioid Agonist Start: 12-13-2018 End: 03-24-2019 take 1 tablet by mouth every six hours as needed for pain Hydrocodone-Aceta minophen 5-325 MG Oral Tablet ; 1 (one) Tablet q6h, prn severe pain for 0 days Quantity: 30 {Tablet} Refills: 0 Ordered: 24-Mar-2019 JOAQUIM Quiroz Start: 13-Dec-2018 End: 24-Mar-2019 Status: Inactive Comments: has procedure in 3 wks and will need enough to get to that appointment. Comment on above: has procedure in 3 w ks and will need enough to get to that appointment. busPIRone hydrochloride 5 mg oral tablet (10 sources) Start: 11-03-2023 End: 03-24-2024 busPIRone 5 mg tablet ; 1 (one) tablet two times daily for 30 days Quantity: 60 {Tablet} Refills: 1 Ordered: 24-Mar-2024 CATHY Al Start: 03-Nov-2023 End: 24-Mar-2024 Status: Inactive ciprofloxacin 500 mg oral tablet (10 sources) Quinolone Antimicrobial Start: 11-12-2019 End: 11-19-2019 take 1 tablet by mouth twice daily Cipro 500 MG Oral Tablet ; 1 (one) Tablet bid for 7 days Quantity: 14 {Tablet} Refills: 0 Ordered: 12-Nov-2019 MD Damir Drew Start: 12-Nov-2019 End: 19-Nov-2019 Status: Inactive hydrOXYzine hydrochloride 25 mg oral tablet (10 sources) Antihistamine Start: 03-24-2024 End: 08-05-2024 hydrOXYzine HCL 25 mg tablet ; 1 (one) tablet three times daily, as needed for 0 days Quantity: 30 {Tablet} Refills: 1 Ordered: 05-Aug-2024 CATHY Al Start: 24-Mar-2024 End: 05-Aug-2024 Status: Inactive Comments: Medication taken as needed. Start: 08-26-2023 hydrOXYzine HC L 10 mg tablet ; 1 (one) tablet three times daily, as needed for 0 days Quantity: 30 {Tablet} Refills: 1 Ordered: 26-Aug-2023 KATJA Beaulieu Start: 26-Aug-2023 Comments: Medication taken as needed. Comment on above: Medication taken as needed. lisinopril 20 mg oral tablet (10 sources) Angiotensin Converting Enzyme Inhibitor Start: 1 End: 1 take 1 tablet by mouth twice daily Lisinopril 20 MG Oral Tablet ; 1 Tablet two times daily for 0 days Quantity: 60 {Tablet} Refills: 0 Ordered: 29-May-2021 KATJA Beaulieu Start: 01-May-2021 End: 29-May-2021 Status: Inactive 24 hr metoprolol succinate 25 mg extended release oral tablet (10 sources) beta-Adrenergic James Start: 9 End: 1 take 1 tablet by mouth once daily Metoprolol Succinate ER 25 MG Oral Tablet Extended Release 24 Hour ; 1 (one) Tablet Tablet daily for 0 days Quantity: 30 {Tablet} Refills: 5 Ordered: 14-Mar-2021 JASMINA Mares Start: 13-Dec-2018 End: 14-Mar-2021 Status: Inactive oxyCODONE hydrochloride 10 mg oral tablet (10 sources) Opioid Agonist Start: 9 End: 0 take 1 tablet by mouth every six hours as needed for pain oxyCODONE HCl 10 MG Oral Tablet ; 1 (one) Tablet q6hrs, prn severe pain for 0 days Quantity: 20 {Tablet} Refills: 0 Ordered: 12-Nov-2019 Kandice JOAQUIM Marni Alejo Start: 24-Mar-2019 End: 12-Nov-2019 Status: Inactive predniSONE 20 mg oral tablet (10 sources) Start: 1 End: 1 take 3 tablets by mouth once daily, then take 2 tablets by mouth once daily, then take 1 tablet by mouth once daily, then take 0.5 tablet by mouth once daily predniSONE 20 MG Oral Tablet ; 1 (one) Tablet as directed for 0 days Quantity: 20 {Tablet} Refills: 0 Ordered: 04-Sep-2021 JOAQUIM Quiroz Start: 14-Mar-2021 End: 04-Sep-2021 Status: Inactive Comments: Take 3tabs qd for 3 days thenTake 2tabs qd for 3 days thenTake 1tab qd for 3 days thenTake 1/2tab qd for 4 days. Comment on above: Take 3tabs qd for 3 days thenTake 2tabs qd for 3 days thenTake 1tab qd for 3 days thenTake 1/2tab qd for 4 days. sertraline 50 mg oral tablet (10 sources) Serotonin Reuptake Inhibitor Start: 2 End: 3 sertraline 50 mg tablet ; 1 (one) Tablet daily for 0 days Quantity: 60 {Tablet} Refills: 0 Ordered: 26-Aug-2023 CATHY Rossi Start: 27-Aug-2022 End: 26-Aug-2023 Status: Inactive tamsulosin hydrochloride 0.4 mg oral capsule (10 sources) alpha-Adrenergic James Start: 9 End: 0 take 1 capsule by mouth once daily Flomax 0.4 MG Oral Capsule ; 1 (one) Capsule daily for 0 days Quantity: 10 {Capsule} Refills: 0 Ordered: 12-Nov-2019 Ozora, JOAQUIM Marni Alejo Start: 24-Mar-2019 End: 12-Nov-2019 Status: Inactive Problems Active Problems Problem Classification Problem Date Documented Da te Episodic/Chronic Abdominal pain (20 sources) Right flank pain; Translations: [Unspecified abdominal pain] 08-26-2023 Episodic Anxiety disorders (20 sources) Anxiety; Translations: [Anxiety disorder, unspecified] 08-26-2023 Chronic Disorders of teeth and jaw (20 sources) Chronic pain; Translations: [Disorder of teeth and supporting structures, unspecified] 08-26-2023 Episodic Essential hypertension (20 sources) Hypertensive disorder; Translations: [Essential (primary) hypertension] 11-12-2019 Chronic Genitourinary symptoms and ill-defined conditions (20 sources) Urinary symptoms ; Translations: [Unspecified symptoms and signs involving the genitourinary system] 03-14-2021 Episodic Headache; including migraine (10 sources) Headache; including migraine 12-13-2018 Other circulatory disease (20 sources) Elevated blood pressure; Translations: [Elevated blood-pressure reading, without diagnosis of hypertension] 03-27-2023 Episodic Other screening for suspected conditions (not mental disorders or infectious disease) (20 sources) Patient encounter status; Translations: [Encounter for screening for diabetes mellitus] 03-27-2023 Episodic Residual codes; unclassified (10 sources) Tobacco user; Translations: [Tobacco use] 08-26-2023 Episodic Residual codes; unclassified (20 sources) Influenza vaccination declined; Translations: [Immunization not carried out because of patient refusal] 08-26-2023 Episodic Spondylosis; intervertebral disc disorders; other back problems (20 sources) Backache; Translations: [Dorsalgia, unspecified] 08-26-2023 Episodic Substance-related disorders (10 sources) Opioid abuse; Translations: [Opioid dependence, in remission] 08-05-2024 Chronic Unclassified (10 sources) Follow up for multiple chronic conditions - The patient is here for follow-up of anxiety and hypertension. The patient always takes the prescribed medications. No side effects noted (Patient has not been taking sertraline last prescribed last year. He reports taking this medication for about a week before stopping. He found that it was making him very sleepy.). The patient has an active lifestyle but no regular exercise program. The patient's out of office blood pressure checks occur occasionally (Checks sometimes at home - reports readings in the 130-140/80-90 range.) and dietary compliance is fairly good usually adhering to recommendations. The patient states that there is no recent angina or dyspnea, there are no vision changes or weakness and headaches are rarely noted. Note for Multiple chronic conditions follow-up : Patient reports that his anxiety has been steadily increasing over the past year. He finds himself irritable, on edge, nervous, and feeling paranoid. He states I feel like I am going crazy and I just want to feel like myself again . He reports that his anxiety gets especially bad in social situations where her feels like he can hear other people whispering about him and staring at him. He denies hearing any voices in his head or feeling like anyone is out to get him. He reports feeling that he is not enough for himself or others. His anxiety has started to impact his relationship with his and they find themselves arguing often. She expresses concern over him and desire for him to get help. They have scheduled for him to see a counselor later this month. 08-26-2023 Unclassified (10 sources) Follow up for chronic condition - The patient is here for follow-up of hypertension. The patient always takes the prescribed medications. No side effects noted. The patient has an active lifestyle but no regular exercise program. The patient's out of office blood pressure checks occur occasionally (Reports checking 1-2 times a month. Reading in the 140s/80s). The patient states that headaches are rarely noted. The patient states that the disease has no overall impact. Note for Chronic condition follow-up : Reports that he is feeling well at this time. Needs medication refill. 10-24-2021 Unclassified (9 sources) Follow up for multiple chronic conditions - The patient is here for follow-up of anxiety and hypertension. The patient always takes the prescribed medications. No side effects noted. The patient has an active lifestyle but no regular exercise program. The patient's out of office blood pressure checks occur rarely (Patient does not check at home) and dietary compliance is good with close adherance to recommendations. The patient states that there is no recent angina or dyspnea, there are no vision changes or weakness, weight has increased (up 5lbs), mood is unchanged (Patient reports that recent medication seemed to make him sleepy. He reports that he did well on Prozac in the past and would like to try this again.) and they do not have headaches. 03-24-2024 Past or Other Problems Problem Classification Problem Date Documented Da te Episodic/Chronic Unclassified (10 sources) Well adult male - The patient feels well with minor complaints, has good energy level and is sleeping well. The patient has a balanced diet. The patient exercises none (busy at work and walks a lot there-- nothing at home). The patient sleeps 7 (6-7) hours per night. Note for Well adult male : pt did not get BW prior-- he is not fastingPt does not check BP at home often.Patient reports that he does fell on edge and anxious most days. He reports that he sometimes feels short of breath due to this. He reports previous treatment with Prozac for anxiety many years ago. He does report that medication made him very tired. He denies any symptoms of depression. He states that his notices how he worries and she thinks he should seek help. 08-27-2022 Unclassified (9 sources) Back pain - The onset of the back pain has been sudden and has been occurring in a persistent pattern for 2 days (started with back pain yesterday morning about 8am, no known injury. Does alot of heavy lifting at his workplace.). The course has been increasing (was worse last night). The pain is characterized as a dull ache (sometimes will be a sharp/burning pain). The pain is located in the lower back (across the lower back, maybe worse on the right) and does not radiate. The symptoms are aggravated by weight lifting (bending over) and are relieved by lying down, heat, ice and NSAIDs. The pain has been associated with back stiffness, while there has been no associated hip pain, history of back surgery or leg weakness. Note for Back pain : Patient has been using ice, heat, and ibuprofen with little relief of symptoms. 03-14-2021 Unclassified (9 sources) [ADDITIONAL REASON] New Patient - Transferring from Dr. Hyde. Currently on 20 mg lisinopril. Patient does not monitor blood pressure regularly at home. 03-14-2021 Unclassified (10 sources) UTI - Symptoms include dysuria, urinary frequency, urinary urgency and abdominal pain. The pain is located in the right lower abdomen. The pain radiates to the left lumbar area. Onset was sudden 2 day(s) ago. The symptoms occur constantly. The patient describes this as moderate in severity and worsening. Associated symptoms include nausea, but do not include vomiting. Note for UTI : Has a history of kidney stones. reviewed by [facility] 11-12-2019 Unclassified (10 sources) Back pain - The onset of the back pain has been sudden and has been occurring in a persistent pattern for 24 hours. Note for Back pain : -Pain in right flank. Suspects kidney stone. 03-24-2019 Unclassified (1 source) Follow up for multiple chronic conditions - The patient is here for follow-up of anxiety and hypertension. The patient has stopped the recommended medications (Pt stopped taking the fluoxetine and the hydroxyzine Pt said he took them for about 2 months Pt said it did not seem to help him). The patient has an active lifestyle but no regular exercise program. The patient's out of office blood pressure checks occur rarely and dietary compliance is fairly good usually adhering to recommendations. The patient states that there is no recent angina or dyspnea, weight has increased (up 9 lbs), mood is unchanged and they do not have headaches. 08-05-2024 Unclassified (5 sources) Follow up for multiple chronic conditions - The patient is here for follow-up of anxiety and hypertension. The patient has stopped the recommended medications (Pt stopped taking the fluoxetine and the hydroxyzine. He took these medications for approximately two months before stopping them. He feels they may have been helping a little, but then he went through some things and stopped them.). The patient has an active lifestyle but no regular exercise program. The patient's out of office blood pressure checks occur rarely and dietary compliance is fairly good usually adhering to recommendations. The patient states that there is no recent angina or dyspnea, weight has increased (up 9 lbs), mood is unchanged and they do not have headaches. Note for Multiple chronic conditions follow-up : Patient feels that he needs something to help him at this time.He reports recently testing positive for opioids on a court mandated urine drug screen. He was advised that he will go to skilled nursing if he tests positive again. He reports that he is motivated to stop his opioid use and has gotten rid of his supply. He last had 20 mg of oxycodone yesterday. He reports daily use of up to 60 mg of oxycodone for the last several years. He has been getting counseling regarding this at [facility]. Patient reports that he is starting to have irritability and restlessness associated with withdrawal. 08-05-2024 Unclassified (1 source) New Patient - Transferring from Dr. Hyde. Currently on 20 mg lisinopril. Patient does not monitor blood pressure regularly at home. 03-14-2021 Unclassified (1 source) [ADDITIONAL REASON] Back pain - The onset of the back pain has been sudden and has been occurring in a persistent pattern for 2 days (started with back pain yesterday morning about 8am, no known injury. Does alot of heavy lifting at his workplace.). The course has been increasing (was worse last night). The pain is characterized as a dull ache (sometimes will be a sharp/burning pain). The pain is located in the lower back (across the lower back, maybe worse on the right) and does not radiate. The symptoms are aggravated by weight lifting (bending over) and are relieved by lying down, heat, ice and NSAIDs. The pain has been associated with back stiffness, while there has been no associated hip pain, history of back surgery or leg weakness. Note for Back pain : Patient has been using ice, heat, and ibuprofen with little relief of symptoms. 03-14-2021 Results Test Name Value Interpretation Reference Range Facility EMERGENCY REPORTon 3 EMERGENCY REPORT [facility] EMERGENCY ROOM REPORT NAME ACCOUNT SEX AGE ADMIT DISCHARGE PT MED. RECORD# NUMBER DATE DATE TYPE KRISTA [id number] Freddie 37 05/17/23 05/18/23 3 KOFI Hobbs [id number] ROOM: ER DATE OF : 1985 DICTATING PHYSICIAN: Penny Temple DATE SEEN: May 17, 2023 TIME SEEN: 1850 hours HISTORY OF PRESENT ILLNESS: This is a 37-year-old white male who had been drinking all day today. Family states that he drank 2 bottles of tequila. He became intoxicated and reportedly he fell face first into the bathtub. He did not lose consciousness but he did get up and punch a window with his right arm and sustained a laceration to his lower lip and his right forearm. Last tetanus was greater than 5 years ago. Patient does complain of a headache and facial pain as well as some neck pain. He also complains of some bilateral rib pain and diffuse generalized abdominal pain. He has complained of some nausea but denies any vomiting. PAST MEDICAL HISTORY: Hypertension. He is on lisinopril / hydrochlorothiazide for this. PAST SURGICAL HISTORY: Denied. ALLERGIES: No known drug allergies. SOCIAL HISTORY: He is a smoker, one pack per day. Does admit to frequent alcohol use. Denies any drug use. Lives at home with family. REVIEW OF SYSTEMS: Denies any chest pain, shortness of breath, cough, sputum, wheezing. Does complain of some diffuse generalized abdominal pain with some nausea. Denies any vomiting, diarrhea, constipation, melena, hematochezia. Does complain of a headache as well as some facial pain and does complain of a laceration to the right forearm. Does complain of some neck pain off and on. Denies any back pain presently. Further review of systems negative. PHYSICAL EXAMINATION: Temperature 98.4, pulse 102, respirations 18, blood pressure 154/95. Pulse oxygenation 93% on room air. Weight 160 pounds. He does not have a primary care physician. Patient is awake, alert, somewhat belligerent and does appear to be intoxicated. Slurs some of his words. HEENT: I do note various abrasions and contusions to his face. He does have a 1 cm linear laceration to the midline of his lower lip which is gaping approximately 5 mm. No foreign body. Teeth do appear to be intact but he has a lot of facial tenderness, especially over the bilateral maxillary sinuses. His pupils are equal and reactive to light. Red reflexes intact Page 1 of 4 [facility] Emergency Room Report [facility] Faby : 1985 bilaterally. Extraocular muscles intact. No conjunctival injection. Ears: TM's intact bilaterally. No hemotympanum. Nose exhibits some dried blood in both nares but no septal hematoma and no active nose bleed. Mouth: Mucous membranes are moist. Teeth intact. He does have a 1 cm lineal laceration to the midline of the lower lip that is gaping. Neck is supple with trachea midline. No JVD or lymphadenopathy. He does have some diffuse posterior cervical tenderness on palpation. No palpable deformity. Lungs are clear to auscultation bilaterally. No adventitious sounds are noted. No accessory muscle use noted. He does have palpable tenderness in the bilateral ribs, mainly along the midaxillary line region. No crepitance. No subcutaneous emphysema noted. CV: Heart rate and rhythm is regular. No murmur noted. Abdomen is soft with some diffuse generalized tenderness x all 4 quadrants. Bowel sounds are present x 4 quadrants and hyperactive. Patient does exhibit some voluntary guarding but no involuntary guarding. No rebound. No palpable abdominal masses. No hepatosplenomegaly. Back exhibits no midline or paraspinal region tenderness. No increased paraspinal muscle rigidity. Negative Casa's sign. Extremities: I do note an 8 cm linear laceration to the volar aspect of the proximal right forearm. The wound does go down to the muscle belly but only minimally nicked the muscle belly itself. No foreign body. No tendon involvement. The patient is able to flex and extend all digits of the right hand well against resistance. Capillary refill less than 2 seconds. Good sensation to light touch. No palpable bony defect and no visible bony deformity to the right forearm. Good intact right radial pulse. Also, skin is warm and dry. No diaphoresis or rash. Neurologic examination shows the patient to be alert and oriented x 3. No motor or sensory deficits are noted. His speech, for the most part, is not slurred. Occasionally he will slur his words but he is just more belligerent. His is at the bedside and she can keep him from becoming too uncooperative. DIAGNOSTIC DATA: I did do a CT scan of the brain that showed no acute intracranial hemorrhage or skull fracture. CT scan of the facial bones showed no evidence of any facial fractures. CT scan of the cervical spine showed no cervical spine fracture or subluxation. CT scan of the chest, abdomen, and pelvis showed no evidence of any pulmonary contu (more content not included)... Normal [facility] ALCOHOL-BLOOD MEDICALon 04-20 Ethanol [Mass/Vol] 254 mg/dL High 0 - 50 [facility] Comment on above: Performed By: #### 2 [id number] #### [address] [address] CBC + DIFFon 05-17-2023 Baso # 0.10 x10EE3/UL Normal 0.00 - 0.10 [facility] Comment on above: Performed By: #### 2 [id number] #### [address] [address] Basophils/100 WBC (Bld) 0.5 % Normal 0.0 - 2.0 [facility] Comment on above: Performed By: #### 2 [id number] #### [facility],[address] [place] [address] CBC + DIFF Normal [facility] Comment on above: Result Comment: CBC- COMPLETE BLOOD COUNT Performed By: #### 2 [id number] #### [facility],[address] [place] [address] EO # 0.10 x10EE3/UL Normal 0.00 - 0.50 [facility] Comment on above: Performed By: #### 2 [id number] #### [facility],[address] [place] [address] Eosinophils/100 WBC (Bld) 1.1 % Normal 0.0 - 7.0 [facility] Comment on above: Performed By: #### 2 [id number] #### [facility],[address] [place] [address] Erythrocyte distribution width (RBC) [Ratio] 13.4 % Normal 12.0 - 15.6 [facility] Comment on above: Performed By: #### 2 [id number] #### [facility],[address] [place] [address] Hematocrit (Bld) [Volume fraction] 45.3 % Normal 40.0 - 52.0 [facility] Comment on above: Performed By: #### 2 [id number] #### [facility],[address] [place] [address] Hemoglobin (Bld) [Mass/Vol] 15.1 g/dL Normal 13.0 - 17.5 [facility] Comment on above: Performed By: #### 2 [id number] #### [facility],[address] [place], [place] [id number] Lymph # 4.10 x10EE3/UL High 0.80 - 2.80 [facility] Comment on above: Performed By: #### 2 [id number] #### [facility],[address] [place], [place] [id number] Lymphocytes/100 WBC (Bld) 29.7 % Normal 20.0 - 45.0 [facility] Comment on above: Performed By: #### 2 [id number] #### [facility],[address] [place] [address] MANUAL DIFF N/A Normal [facility] Comment on above: Performed By: #### 2 [id number] #### [facility],[address] [place] [address] MCH (RBC) [Entitic mass] 31 pg Normal 27 - 33 [facility] Comment on above: Performed By: #### 2 68962 #### [facility],[address] [place] [address] MCHC 33 X10 3 Normal 32 - 36 [facility] Comment on above: Performed By: #### 2 10052 #### [facility],[address] [place] [address] MCV (RBC) [Entitic vol] 92 fL Normal 81 - 98 [facility] Comment on above: Performed By: #### 2 08052 #### [facility],[address] [place] [address] Mccook # 0.70 x10EE3/UL Normal 0.20 - 1.00 [facility] Comment on above: Performed By: #### 2 76391 #### [facility],[address] [place] [address] MONOS % 5.1 % Normal 0.0 - 10.0 [facility] Comment on above: Performed By: #### 2 51621 #### [facility],[address] [place] [address] Morphology Rafa (Bld) [Interp] N/A Normal [facility] Comment on above: Performed By: #### 2 09591 #### [facility],[address] [place] [address] Neut # 8.80 x10EE3/UL High 1.50 - 7.10 [facility] Comment on above: Performed By: #### 2 50931 #### [facility],[address] [place] [address] 02349 Neutrophils/100 WBC (Bld) 63.6 % Normal 46.0 - 76.0 [facility] Comment on above: Performed By: #### 2 84834 #### [facility],[address] [place] [address] 96779 PLATELET 423 x10EE3/UL Normal 150 - 450 [facility] Comment on above: Performed By: #### 2 13015 #### [facility],[address] [place] [address] 54175 Platelet mean volume (Bld) [Entitic vol] 6.9 fL Normal 6.4 - 10.5 [facility] Comment on above: Result Comment: AUTO MATED DIFFERENTIAL Performed By: #### 2 11456 #### [facility],[address] [place] [address] 78839 RBC 4.93 x 10EE6/UL Normal 4.50 - 6.00 [facility] Comment on above: Performed By: #### 2 02453 #### [facility],[address] [place] [address] 13053 WBC 13.8 x 10EE3/UL High 4.5 - 10.8 [facility] Comment on above: Performed By: #### 2 05155 #### [facility],[address] [place] [address] 32313 CMP with eGFRon 05-17-2023 AGE 37 years Normal [facility] Comment on above: Performed By: #### 2 02016 #### [facility],[address] [place] [address] 08639 Albumin [Mass/Vol] 3.8 g/dL Normal 3.4 - 5.0 [facility] Comment on above: Performed By: #### 2 30344 #### [facility],[address] [place] [address] 76258 Albumin/Globulin [Mass ratio] 1.0 {ratio} Normal 0.9 - 1.6 [facility] Comment on above: Performed By: #### 2 65956 #### [facility],[address] [place] [address] 86124 ALK PHOS 82 U/L Normal 46 - 116 [facility] Comment on above: Performed By: #### 2 51678 #### [facility],[address] [place] [address] 17584 ALT [Catalytic activity/Vol] 45 U/L Normal 16 - 63 [facility] Comment on above: Performed By: #### 2 05357 #### [facility],[address] [place] [address] 60366 Anion gap [Moles/Vol] 16 mmol/L Normal 10 - 20 [facility] Comment on above: Performed By: #### 2 32309 #### [facility],[address] [place] [address] 97800 AST [Catalytic activity/Vol] 40 U/L High 15 - 37 [facility] Comment on above: Performed By: #### 2 02183 #### [facility],[address] [place] [address] 97034 B/C RATIO 17 ratio Normal 0 - 30 [facility] Comment on above: Performed By: #### 2 00587 #### [facility],[address] [place] [address] 36337 Bilirubin [Mass/Vol] 0.2 mg/dL Normal 0.2 - 1.0 [facility] Comment on above: Performed By: #### 2 73454 #### [facility],[address] [place] [address] 98887 Calcium [Mass/Vol] 8.4 mg/dL Low 8.5 - 10.1 [facility] Comment on above: Performed By: #### 2 26800 #### [facility],[address] [place] [address] 80944 Chloride [Moles/Vol] 102 mmol/L Normal 98 - 107 [facility] Comment on above: Performed By: #### 2 99534 #### [facility],[address] [place] [address] 26186 CMP with eGFR Normal [facility] Comment on above: Result Comment: COMP REHENSIVE METABOLIC PANEL Performed By: #### 2 14910 #### [facility],[address] [place] [address] 20802 CO2 [Moles/Vol] 26.0 mmol/L Normal 21.0 - 32.0 [facility] Comment on above: Performed By: #### 2 12839 #### [facility],[address] [place] [address] 50334 Creatinine [Mass/Vol] 0.77 mg/dL Normal 0.70 - 1.30 [facility] Comment on above: Performed By: #### 2 92453 #### [facility],[address] [place] [address] 23650 GFR/1.73 sq M.predicted among non-blacks MDRD (S/P/Bld) [Vol rate/Area] mL/min/{1.73_m2} Normal 60 - 999 [facility] Comment on above: Performed By: #### 2 90691 #### [facility],[address] [place] [address] 80443 Result Comment: ACCO RDING TO THE NATIONAL KIDNEY DISEASE EDUCATION PROGRAM(NKDE), A NORMAL eGFR IS A VALUE GREATER THAN OR EQUAL TO 60 ML/MIN/1.73 SQ METERS. CHRONIC KIDNEY DISEASE: <60mL/MIN/1.73 SQ METERS KIDNEY FAILURE: <15mL/MIN/1.73 SQ METERS THIS TEST SHOULD ONLY BE USED FOR PATIENTS 18 YEARS OF AGE AND OLDER. Globulin (S) [Mass/Vol] 3.7 g/dL Normal 1.5 - 3.8 [facility] Comment on above: Performed By: #### 2 36126 #### [facility],[address] [place] [address] 58461 Glucose [Mass/Vol] 146 mg/dL High 74 - 106 [facility] Comment on above: Performed By: #### 2 42503 #### [facility],[address] [place] [address] 95060 Potassium [Moles/Vol] 3.3 mmol/L Low 3.5 - 5.1 [facility] Comment on above: Performed By: #### 2 47293 #### [facility],[address] [place] [address] 50595 Protein [Mass/Vol] 7.5 g/dL Normal 6.4 - 8.2 [facility] Comment on above: Performed By: #### 2 06951 #### [facility],[address] [place] [address] 60416 Sodium [Moles/Vol] 141 mmol/L Normal 136 - 145 [facility] Comment on above: Performed By: #### 2 95322 #### [facility],[address] [place], [place] [address] Urea nitrogen [Mass/Vol] 13 mg/dL Normal 7 - 18 [facility] Comment on above: Performed By: #### 2 56232 #### [facility],[address] [place] [address] BRAIN W/O CONTRASTon 07-3 CT BRAIN W/O CONTRAST [place] [address] Patient: KOFI VELASCO Phone#: : 1985 Age: 37 Gender: M Pt. Type: ER Account: [id number] Location: [facility] Ordering: PENNY TEMPLE Exam Date: 05/17/2023/20:27 Family Phys: ERENDIRA BEAULIEU Charge Code: [id number] Physician: [place] Order #: [id number] Dose#: 52.3 mGy PROCEDURE: CT BRAIN WITHOUT CONTRAST COMPARISON: None. INDICATIONS: Trauma. TECHNIQUE: CT images were obtained without contrast material. All CT scans at this facility use dose modulation, iterative reconstruction, and/or weight based dosing when appropriate to reduce radiation dose to as low as reasonably achievable. IV CONTRAST: No IV contrast used,0ml TOTAL DOSE: 52.3 CTDIvol(mGy) FINDINGS: CEREBRUM: No edema, hemorrhage, mass, acute infarction, or inappropriate atrophy. CEREBELLUM: No edema, hemorrhage, mass, acute infarction, or inappropriate atrophy. BRAINSTEM: No edema, hemorrhage, mass, acute infarction, or inappropriate atrophy. CSF SPACES: Ventricles, cisterns, and sulci are appropriate for age. No hydrocephalus, subarachnoid hemorrhage, or mass. SKULL: No mass or other significant visible lesion. SINUSES: Mucosal thickening is present in the ethmoid sinuses. ORBITS: Limited views are unremarkable. OTHER: 2 millimeter density in the left frontal scalp, possible foreign body. CONCLUSION: 1. There is no evidence of acute intracranial abnormality. 2. 2 millimeter left frontal scalp density, possible foreign body. Dictated by: Kirti Guzman MD on 05/17/2023 at 21:16 Approved by: Kirti Guzman MD on 05/17/2023 at 21:[address] [facility] [address] CERVICAL W/O CONTRASTon 0 05-17-2023 CT CERVICAL W/O CONTRAST [place] [address] Patient: KOFI VELASCO Phone#: : 1985 Age: 37 Gender: M Pt. Type: ER Account: [id number] Location: 052 Ordering: PENNY TEMPLE Exam Date: 05/17/2023/20:27 Family Phys: ERENDIRA BEAULIEU Charge Code: [id number] Physician: [place] Order #: [id number] Dose#: 15.0 mGy PROCEDURE: CT CERVICAL WITHOUT CONTRAST COMPARISON: None. INDICATIONS: Trauma. TECHNIQUE: Multi-planar CT images were created without intravenous contrast. All CT scans at this facility use dose modulation, iterative reconstruction, and/or weight-based dosing when appropriate to reduce radiation dose to as low as reasonably achievable. IV CONTRAST: No IV contrast used,0ml TOTAL DOSE: 15.0 CTDIvol(mGy) FINDINGS: CRANIOCERVICAL AREA: Normal foramen magnum with no Chiari malformation. PARASPINAL AREA: Normal with no visible mass. BONES: No fracture, pars defect, or osseous lesion. There is straightening of the normal cervical lordosis. Chronic anterior superior endplate changes are present at the C5 and C6 level possibly related to remote trauma. CERVICAL DISC LEVELS: C2-C3: No significant disc/facet abnormality, spinal stenosis, or foraminal stenosis. C3-C4: No significant disc/facet abnormality, spinal stenosis, or foraminal stenosis. C4-C5: No significant disc/facet abnormality, spinal stenosis, or foraminal stenosis. C5-C6: No significant disc/facet abnormality, spinal stenosis, or foraminal stenosis. C6-C7: Disc space narrowing is present. There are endplate osteophytes with narrowing of the left neural foramen. C7-T1: No significant disc/facet abnormality, spinal stenosis, or foraminal stenosis. CONCLUSION: 1. Degenerative changes of the spine are present at C6-7. There is no evidence of acute fracture or subluxation. Continued Report - Page 2 of 2 Patient: KOFI VELASCO Phone#: : 1985 Age: 37 Gender: M Pt. Type: ER Account: [id number] Location: 052 Ordering: PENNY TEMPLE Exam Date: 05/17/2023/20:27 Family Phys: ERENDIRA BEAULIEU Charge Code: [id number] Physician: [place] Order #: [id number] Dose#: 15.0 mGy Dictated by: Kirti Guzman MD on 05/17/2023 at 21:24 Approved by: Kirti Guzman MD on 05/17/2023 at 21:[address] [facility] [address] CHEST/ABD/PELVIS C+on CT CHEST/ABD/PELVIS C+ [place] [address] Patient: KOFI VELASCO Phone#: : 1985 Age: 37 Gender: M Pt. Type: ER Account: [id number] Location: 052 Ordering: PENNY TEMPLE Exam Date: 05/17/202320:32 Family Phys: ERENDIRA BEAULIEU Charge Code: [id number] Physician: [place] Order #: [id number] Dose#: 42.9mGy PROCEDURE: CT CHEST/ABD/PELVIS W COMPARISON: None. INDICATIONS: Trauma. TECHNIQUE: After obtaining the patient's consent, CT images were obtained with intravenous contrast material. All CT scans at this facility use dose modulation, iterative reconstruction, and/or weight based dosing when appropriate to reduce radiation dose to as low as reasonably achievable. IV CONTRAST: Omnipaque 350,80ml CHEST DOSE: 13.0 CTDIvol(mGy) ABDOMEN DOSE: 29.9 CTDIvol(mGy) FINDINGS: LUNGS: Normal. No visible pulmonary disease. VASCULATURE: Normal. No visible pulmonary arterial thrombus or attenuation. MIGUEL: Normal. No mass or adenopathy. MEDIASTINUM: Normal. No mass or adenopathy. CARDIAC: Normal. No enlargement, pericardial thickening, or significant calcification. PLEURA: Normal. No mass or effusion. CHEST WALL: Normal. No mass or axillary adenopathy. LIVER: Normal. No enlargement, atrophy, abnormal density, or significant focal lesion. BILIARY: Normal. No visible dilatation or calcification. PANCREAS: Normal. No lesion, fluid collection, ductal dilatation, or atrophy. SPLEEN: Normal. No enlargement or focal lesion. KIDNEYS: Normal. No mass, obstruction, or calcification. ADRENALS: Normal. No mass or enlargement. AORTA/VASCULAR: Normal. No aneurysm or dissection. RETROPERITONEUM: Normal. No mass or adenopathy. BOWEL/MESENTERY: Normal. No visible mass, obstruction, or bowel wall thickening. ABDOMINAL WALL: Normal. No mass or hernia. Continued Report - Page 2 of 2 Patient: KOFI VELASCO Phone#: : 1985 Age: 37 Gender: M Pt. Type: ER Account: [id number] Location: 052 Ordering: PENNY FORMANJOHAN Exam Date: 05/17/2023/20:32 Family Phys: ERENDIRA BEAULIEU Charge Code: [id number] Physician: [place] Order #: [id number] Dose#: 42.9mGy URINARY BLADDER: Normal. No visible focal wall thickening, lesion, or calculus. PELVIC NODES: Normal. No adenopathy. PELVIC ORGANS: Normal. No visible mass. Pelvic organs appropriate for patient age. BONES: Mild degenerative changes of the spine are present. No bony lesion or fracture. OTHER: Negative. CONCLUSION: 1. There is no evidence of acute thoracic, abdominal or pelvic abnormality. 2. There is no evidence of acute bone abnormality. Dictated by: Kirti Guzman MD on 05/17/2023 at 21:30 Approved by: Kirti Guzman MD on 05/17/2023 at 21:[address] [facility] [address] FACIAL BONES W/O CONTRAST on 05-17-2023 CT FACIAL BONES W/O CONTRAST [place] [address] Patient: KOFI VELASCO Phone#: : 1985 Age: 37 Gender: M Pt. Type: ER Account: [id number] Location: [facility] Ordering: PENNY TEMPLE Exam Date: 05/17/2023/20:27 Family Phys: ERENDIRA BEAULIEU Charge Code: [id number] Physician: [place] Order #: [id number] Dose#: 27.8 mGy PROCEDURE: CT FACIAL BONES WITHOUT CONTRAST COMPARISON: None. INDICATIONS: Trauma. TECHNIQUE: After obtaining the patient's consent, CT images were created without non-ionic intravenous contrast. All CT scans at this facility use dose modulation, iterative reconstruction, and/or weight based dosing when appropriate to reduce radiation dose to as low as reasonably achievable. IV CONTRAST: No IV contrast used,0ml TOTAL DOSE: 27.8 CTDIvol(mGy) FINDINGS: FACIAL BONES: Normal. No bony lesion or fracture SINUSES: There is opacification of ethmoid sinuses. NASAL FOSSA: Nasal septal deviation to the left is present. SKULL BASE: Normal. No mass or bone destruction. ORBITS: Normal. No visible mass, hematoma, edema or fracture. CAVERNOUS SINUS: Normal. Symmetric appearance with no visible lesion. SALIVARY GLANDS: Normal. The parotid and submandibular glands are unremarkable. OTHER: Normal. The nasopharynx, oropharynx, and oral cavity are unremarkable. No lymphadenopathy. CONCLUSION: 1. There is no evidence of acute facial abnormality. Dictated by: Kirti Guzman MD on 05/17/2023 at 21:19 Approved by: Kirti Guzman MD on 05/17/2023 at 21:23 Normal [facility] DRUG SCREEN URINE MEDICon AMPHETAMINES Negative Normal [facility] Comment on above: Performed By: #### 2 63270 #### [facility],[address] [place] [address] 55980 B-DIAZEPINES Positive Normal [facility] Comment on above: Performed By: #### 2 94076 #### [facility],[address] [place] [address] 18683 BARBITURATES Negative Normal [facility] Comment on above: Performed By: #### 2 84051 #### [facility],[address] [place] [address] 51769 COCAINE Negative Normal [facility] Comment on above: Performed By: #### 2 95291 #### [facility],[address] [place] [address] 68948 DRUG SCREEN URINE MEDIC Normal [facility] Comment on above: Result Comment: DRUG SCREEN - URINE Performed By: #### 2 97927 #### [facility],[address] [place] [address] 45828 METHADONE Negative Normal [facility] Comment on above: Performed By: #### 2 15649 #### [facility],[address] [place] [address] 26645 OPIATES Positive [facility] Comment on above: Performed By: #### 2 83266 #### [facility],[address] [place] [address] 16174 PCP Negative Normal [facility] Comment on above: Performed By: #### 2 10741 #### [facility],[address] [place] [address] 34820 THC Negative Normal [facility] Comment on above: Result Comment: JUVENTINO ENTS RECEIVING PROTON PUMP INHIBITORS MAY DEMONSTRATE FALSE POSITIVE THC/CANNABINOID RESULTS. AN ALTERNATIVE CONFIRMATORY METHOD SHOULD BE CONSIDERED TO VERIFY POSITIVE RESULTS. Performed By: #### 2 77853 #### [facility],[address] [place] [address] TROPONIN I, HIGH SENSITIVITY on 05-17-2023 HS TROPONIN 4.3 pg/mL Normal 0.0 - 76.2 [facility] Comment on above: Performed By: #### 2 38087 #### [facility],[address] [place] [address] URINALYSIS WITH MICROSCOPYon 05-17-2023 Amorphous NONE Normal [facility] Comment on above: Performed By: #### 2 17134 #### [facility],[address] [place] [address] Bacteria NONE Normal [facility] Comment on above: Performed By: #### 2 79314 #### [facility],[address] [place] [address] Bilirubin Ql (U) Negative Normal NORMAL: NEGATIVE [facility] Comment on above: Performed By: #### 2 55596 #### [facility],[address] [place] [address] Casts NONE Normal [facility] Comment on above: Performed By: #### 2 50745 #### [facility],[address] [place], [place] [address] Clarity (U) clear Normal NORMAL: CLEAR [facility] Comment on above: Performed By: #### 2 21811 #### [facility],[address] [place] [address] 03633 Color (U) p.yel Normal NORMAL: YELLOW [facility] Comment on above: Performed By: #### 2 82479 #### [facility],[address] [place] [address] 91701 Crystals LM Nom (Urine sed) NONE Normal [facility] Comment on above: Performed By: #### 2 35437 #### [facility],[address] [place] [address] 59804 Epi Cells NONE Normal [facility] Comment on above: Performed By: #### 2 31222 #### [facility],[address] [place] [address] 53887 Glucose Ql (U) NORM Normal NORMAL: NORMAL [facility] Comment on above: Performed By: #### 2 39490 #### [facility],[address] [place] [address] 14333 Hemoglobin Ql (U) Negative Normal NORMAL: NEGATIVE [facility] Comment on above: Performed By: #### 2 44967 #### [facility],[address] [place] [address] 76095 Ketone Negative Normal NORMAL: NEGATIVE [facility] Comment on above: Performed By: #### 2 25241 #### [facility],[address] [place] [address] 66043 Leukocytes Negative Normal NORMAL: NEGATIVE [facility] Comment on above: Result Comment: URIN E MICROSCOPIC Performed By: #### 2 91595 #### [facility],[address] [place] [address] 86828 Mucous NONE Normal [facility] Comment on above: Performed By: #### 2 65228 #### [facility],[address] [place] [address] 69966 Nitrite Ql (U) Negative Normal NORMAL: NEGATIVE [facility] Comment on above: Performed By: #### 2 67889 #### [facility],[address] [place] [address] 46458 pH (U) 5 [pH] Normal NORMAL: 5.0-8.0 [facility] Comment on above: Performed By: #### 2 17549 #### [facility],[address] [place] [address] 91440 Protein Ql (U) 15 Abnormal NORMAL: NEGATIVE [facility] Comment on above: Performed By: #### 2 92130 #### [facility],[address] [place] [address] Rbc NONE Normal 0-3 / hpf [facility] Comment on above: Performed By: #### 2 23328 #### [facility],[address] [place] [address] Sp Thiells 1.015 Normal NORMAL: 1.010-1.030 [facility] Comment on above: Performed By: #### 2 34593 #### [facility],[address] [place] [address] Specimen Type UNSPECIFIED Normal [facility] Comment on above: Performed By: #### 2 86322 #### [facility],[address] [place] [address] URINALYSIS WITH MICROSCOPY Normal [facility] Comment on above: Result Comment: URIN ALYSIS Performed By: #### 2 99137 #### [facility],[address] [place] [address] Urobilinog NORM Normal NORMAL: NORMAL [facility] Comment on above: Performed By: #### 2 56621 #### [facility],[address] [place] [address] Wbc NONE Normal 0-5 / hpf [facility] Comment on above: Performed By: #### 2 64062 #### [facility],[address] [place] [address] Yeast NONE Normal [facility] Comment on above: Performed By: #### 2 31637 #### [facility],[address] [place] [address] Laboratory - Chemistry and C hemistry - challengeon 11-12-2019 Bilirubin Ql (U) Negative Normal [employer] [facility] Ketones Ql (U) Negative Normal [facility] pH (U) 7.5 [pH] Normal [employer]. Specific gravity (U) [Rel density] 1.020 Normal [employer]. Urobilinogen Qn (U) .2 mg/dL Normal [employer]. Laboratory - Hematology and Cell countson 11-12-2019 Hemoglobin Ql (U) Negative Normal [employer]. Laboratory - Specimen inform ationon 11-12-2019 Appearance (U) clear Normal [employer]; [employer]. Color (U) yellow Normal [employer]; [employer]. Laboratory - Urinalysison Glucose Test strip (U) [Mass/Vol] Negative Normal [employer]. Leukocyte esterase Test strip Ql (U) Negative Normal [employer]. Nitrite Ql (U) Negative Normal [facility] [employer]. Protein Ql (U) Negative Normal [employer]. No Panel Informationon 11-12 CULTURE, URINE, ROUTINE SEE NOTE Normal [employer]; [employer]. Laboratory - Chemistry and C hemistry - challengeon 03-24-2019 Bilirubin Ql (U) Negative Normal [facility] [employer]. Ketones Ql (U) Negative Normal [employer]. pH (U) 6.0 [pH] Normal [employer]. Specific gravity (U) [Rel density] 1.015 Normal [employer]; [employer]. Urobilinogen Qn (U) 0.2 mg/dL Normal [employer]. Laboratory - Hematology and Cell countson 03-24-2019 Hemoglobin Ql (U) Negative Normal [employer]. Laboratory - Specimen inform ationon 03-24-2019 Appearance (U) clear Normal [employer]. Color (U) yellow Normal [employer]. Laboratory - Urinalysison Glucose Test strip (U) [Mass/Vol] Negative Normal [employer]. Leukocyte esterase Test strip Ql (U) Negative Normal [employer]. Nitrite Ql (U) Negative Normal [facility] [employer]. Protein Ql (U) Negative Normal [facility] [employer]. Vital Signs Date Time Vital Sign Value Performing Clinician Facility 08-05-2024 13:23-0400 Body height 175.26 cm Barby Al [place] [employer]. 08-05-2024 13:23-0400 Body mass index (BMI) [Ratio] 34.26 kg/m2 Barby Al [place] [facility].; [employer]. 08-05-2024 13:23-0400 Body surface area Derived from formula 2.[address] [facility] [employer].; [employer]. 08-05-2024 13:23-0400 Body weight 105.24 kg Barby Al [place] [employer]. 08-05-2024 13:23-0400 Diastolic blood pressure 117 mm[Hg] Barby Al [place] [employer]. Comment on above: Patient Position: Si tting; Cuff Location: Left Arm; Cuff Size: Standard 08-05-2024 13:23-0400 Heart rate 105 /min Barby Al [place] [employer]. Comment on above: Pattern: Regular 08-05-2024 13:23-0400 Systolic blood pressure 182 mm[Hg] Barby Al [place] [employer]. Comment on above: Patient Position: Si tting; Cuff Location: Left Arm; Cuff Size: Standard 03-24-2024 14:49-0400 Body height 175.26 cm [facility]. 03-24-2024 14:49-0400 Body mass index (BMI) [Ratio] 32.93 kg/m2 Barby Al [facility].; [facility]. 03-24-2024 14:49-0400 Body surface area Derived from formula 2.16 m2 Barby Al [facility] [employer] [facility].; [facility]. 03-24-2024 14:49-0400 Body weight 101.15 kg Barby Al [facility].; [facility]. 03-24-2024 14:49-0400 Diastolic blood pressure 98 mm[Hg] Barby Al MA [facility].; [place] [facility]. Comment on above: Patient Position: Si tting; Cuff Location: Left Arm; Cuff Size: Standard 03-24-2024 14:49-0400 Heart rate 98 /min Barby Al MA [facility].; [place] [facility]. Comment on above: Pattern: Regular 03-24-2024 14:49-0400 Systolic blood pressure 167 mm[Hg] Barby Al MA [facility].; [place] [facility]. Comment on above: Patient Position: Si tting; Cuff Location: Left Arm; Cuff Size: Standard 08-26-2023 14:39-0500 Body weight 99.03 kg Kelsi Rossi [facility].; [place] [facility]. 08-26-2023 14:39-0500 Diastolic blood pressure 110 mm[Hg] Kelsi Rossi MA [facility].; [place] [employer]. Comment on above: Patient Position: Si tting; Cuff Location: Left Arm; Cuff Size: Standard 08-26-2023 14:39-0500 Heart rate 88 /min Kelsi Rossi [facility].; [employer] Comment on above: Pattern: Regular 08-26-2023 14:39-0500 Systolic blood pressure 159 mm[Hg] Kelsi Rossi MA [facility].; [facility], [facility]. Comment on above: Patient Position: Si tting; Cuff Location: Left Arm; Cuff Size: Standard 08-27-2022 09:05-0500 Body height 175.26 cm Malgorzata Hermosillo LPN [facility], [facility].; [facility]. 08-27-2022 09:05-0500 Body mass index (BMI) [Ratio] 33.23 kg/m2 Malgorzata Hermosillo LPN [facility].; [facility]. 08-27-2022 09:05-0500 Body surface area Derived from formula 2.17 m2 Malgorzata Hermosillo LPN [facility].; [facility] 08-27-2022 09:05-0500 Body weight 102.06 kg Malgorzata Hermosillo LPN [facility].; [facility] 08-27-2022 09:05-0500 Diastolic blood pressure 97 mm[Hg] Malgorzata Hermosillo LPN [facility].; [facility], [facility]. Comment on above: Patient Position: Si tting; Cuff Location: Left Arm; Cuff Size: Standard 08-27-2022 09:05-0500 Heart rate 139 /min Malgorzata Hermosillo LPN [facility].; [place] [facility], [facility]. Comment on above: Pattern: Regular 08-27-2022 09:05-0500 Systolic blood pressure 151 mm[Hg] Malgorzata Hermosillo LPN [facility].; [facility], [facility]. Comment on above: Patient Position: Si tting; Cuff Location: Left Arm; Cuff Size: Standard 10-24-2021 09:13-0500 Diastolic blood pressure 97 mm[Hg] Aminta Gentile LPN [facility], [facility].; [place] [employer]. Comment on above: Patient Position: Si tting; Cuff Location: Left Arm; Cuff Size: Standard 10-24-2021 09:13-0500 Systolic blood pressure 147 mm[Hg] Aminta Gentile LPN [facility], [facility].; [place] [employer]. Comment on above: Patient Position: Si tting; Cuff Location: Left Arm; Cuff Size: Standard 10-24-2021 09:09-0500 Body height 175.26 cm Aminta Gentile LPN [facility], [facility].; [facility]. 10-24-2021 09:09-0500 Body mass index (BMI) [Ratio] 32.19 kg/m2 Aminta Gentile LPN [facility], [facility].; [facility]. 10-24-2021 09:09-0500 Body surface area Derived from formula 2.14 m2 Aminta Gentile LPN [facility], [facility].; [facility]. 10-24-2021 09:09-0500 Body weight 98.88 kg Amintaarmando Gentile AUTOMOTIVE SERVICES MANAGER [facility], [facility].; [facility]. 10-24-2021 09:09-0500 Diastolic blood pressure 99 mm[Hg] Amintaarmando Gentile [facility], [facility].; [place] [facility], [employer]. Comment on above: Patient Position: Si tting; Cuff Location: Left Arm; Cuff Size: Standard 10-24-2021 09:09-0500 Heart rate 92 /min Aminta Gentile LPN [facility], [facility].; [place] [facility], [facility]. Comment on above: Pattern: Regular 10-24-2021 09:09-0500 Systolic blood pressure 152 mm[Hg] Amintaarmando Gentile LPN [facility], [facility].; [facility], [facility]. Comment on above: Patient Position: Si tting; Cuff Location: Left Arm; Cuff Size: Standard 03-14-2021 12:00-0400 Body height 175.26 cm Sharyn Mares RN [facility], [facility].; [place] [facility]. 03-14-2021 12:00-0400 Body mass index (BMI) [Ratio] 32.93 kg/m2 Sharyn Mares RN [facility], [facility].; [facility]. 03-14-2021 12:00-0400 Body surface area Derived from formula 2.16 m2 Sharyn Mares RN [facility], [facility].; [place] [facility]. 03-14-2021 12:00-0400 Body weight 101.15 kg Sharyn Mares RN [employer].; [employer]. 03-14-2021 12:00-0400 Diastolic blood pressure 106 mm[Hg] Sharyn Mares RN [employer].; [employer]. Comment on above: Patient Position: Si tting; Cuff Location: Right Arm; Cuff Size: Large 03-14-2021 12:00-0400 Heart rate 101 /min Sharyn Mares RN [employer].; [employer]. Comment on above: Pattern: Regular 03-14-2021 12:00-0400 Systolic blood pressure 175 mm[Hg] Sharyn Mares RN [employer].; [employer]. Comment on above: Patient Position: Si tting; Cuff Location: Right Arm; Cuff Size: Large 11-12-2019 08:59-0500 Body height 175.26 cm Damir Drew MD Work Phone: [employer].; [employer]. 11-12-2019 08:59-0500 Body mass index (BMI) [Ratio] 32.49 kg/m2 Damir Drew MD Work Phone: [employer].; [employer]. 11-12-2019 08:59-0500 Body surface area Derived from formula 2.15 m2 Damir Drew MD Work Phone: [employer].; [employer]. 11-12-2019 08:59-0500 Body temperature 98.8 [degF] Damir Drew MD Work Phone: [employer].; [employer]. Comment on above: Method: Tympanic 11-12-2019 08:59-0500 Body weight 99.79 kg Damir Drew MD Work Phone: [employer].; [employer]. 11-12-2019 08:59-0500 Diastolic blood pressure 100 mm[Hg] Damir Drew MD Work Phone: [employer].; [employer]. Comment on above: Patient Position: Si tting; Cuff Location: Left Arm; Cuff Size: Large 11-12-2019 08:59-0500 Heart rate 134 /min Damir Drew MD Work Phone: [employer]; [employer]. Comment on above: Pattern: Regular 11-12-2019 08:59-0500 Systolic blood pressure 162 mm[Hg] Damir Drew MD Work Phone: [employer].; [employer]. Comment on above: Patient Position: Si tting; Cuff Location: Left Arm; Cuff Size: Large 03-24-2019 16:22-0400 Body height 175.26 cm Kenzie Gabriella AUTOMOTIVE SERVICES MANAGER Work Phone: [employer]; [employer]. 03-24-2019 16:22-0400 Body mass index (BMI) [Ratio] 31.9 kg/m2 [employer]OMOTIVE SERVICES MANAGER Work Phone: [employer]; [employer]. 03-24-2019 16:22-0400 Body surface area Derived from formula 2.13 m2 [employer] AUTOMOTIVE SERVICES MANAGER Work Phone: [employer]; [employer]. 03-24-2019 16:22-0400 Body temperature 99.5 [degF] [employer] AUTOMOTIVE SERVICES MANAGER Work Phone: [employer]; [employer]. Comment on above: Method: Tympanic 03-24-2019 16:22-0400 Body weight 97.98 kg Kenzie Gabriella AUTOMOTIVE SERVICES MANAGER Work Phone: [employer].; [employer]. 03-24-2019 16:22-0400 Diastolic blood pressure 112 mm[Hg] Kenzie Gabriella AUTOMOTIVE SERVICES MANAGER Work Phone: [employer].; [employer]. Comment on above: Patient Position: Si tting; Cuff Location: Left Arm; Cuff Size: Standard 03-24-2019 16:22-0400 Heart rate 111 /min Kenzie Gabriella AUTOMOTIVE SERVICES MANAGER Work Phone: [employer].; [employer]. Comment on above: Pattern: Regular 03-24-2019 16:22-0400 Systolic blood pressure 188 mm[Hg] Kenzie Granty AUTOMOTIVE SERVICES MANAGER Work Phone: [employer].; [employer]. Comment on above: Patient Position: Si tting; Cuff Location: Left Arm; Cuff Size: Standard 12-13-2018 11:16-0500 Body height 175.26 cm Kenzie Quiroz LPN Work Phone: [employer].; [employer]. 12-13-2018 11:16-0500 Body mass index (BMI) [Ratio] 31.6 kg/m2 Kenzie Quiroz AUTOMOTIVE SERVICES MANAGER Work Phone: [employer].; [employer]. 12-13-2018 11:16-0500 Body surface area Derived from formula 2.13 m2 Kenzie Quiroz LPN Work Phone: [employer].; [employer]. 12-13-2018 11:16-0500 Body weight 97.07 kg Kenzie Quiroz LPN Work Phone: [employer].; [employer]. 12-13-2018 11:16-0500 Diastolic blood pressure 98 mm[Hg] Kenzie Quiroz LPN Work Phone: [employer].; [employer]. Comment on above: Patient Position: Si tting; Cuff Location: Left Arm; Cuff Size: Standard 12-13-2018 11:16-0500 Heart rate 127 /min Kenzie Granty AUTOMOTIVE SERVICES MANAGER Work Phone: [employer].; [employer]. Comment on above: Pattern: Regular 12-13-2018 11:16-0500 Systolic blood pressure 187 mm[Hg] Kenzie Granty AUTOMOTIVE SERVICES MANAGER Work Phone: [employer].; [employer]. Comment on above: Patient Position: Si tting; Cuff Location: Left Arm; Cuff Size: Standard Encounters Encounter Date Encounter Type Care Provider Facility Start: 08-19-2024 End: 08-19-2024 Telephone follow-up Erendira Beaulieu PA-C Work Phone: [employer] Start: 08-05-2024 End: 08-05-2024 Office outpatient visit 25 minutes Erendira Beaulieu PA-C Work Phone: [employer] Start: 08-05-2024 Follow-up encounter Erendira Be an PA-C Work Phone: [employer] Start: 03-24-2024 End: 03-24-2024 Office outpatient visit 25 minutes Erendira Beaulieu PA-C Work Phone: [employer] Start: 08-26-2023 End: 08-26-2023 Office outpatient visit 25 minutes Erendira Beaulieu PA-C Work Phone: [employer] Start: 05-17-2023 End: 05-18-2023 Emergency department patient visit LESLIE CHAN [facility] Start: 08-27-2022 End: 08-27-2022 Initial preventive medicine new pt age 18-39yrs Erendira Beaulieu PA-C Work Phone: [employer] Start: 08-27-2022 End: 08-27-2022 Patient encounter status Erendira Beaulieu PA-C Work Phone: [employer]; [employer] Start: 05-22-2022 End: 05-22-2022 Orders Erendira Beaulieu PA-C Work Phone: [employer] Start: 10-24-2021 End: 10-24-2021 Office outpatient visit 15 minutes Erendira Beaulieu PA-C Work Phone: [employer] Start: 05-29-2021 End: 05-29-2021 Medication Erendira Beaulieu PA-C Work Phone: [employer] Start: 05-01-2021 End: 05-01-2021 Medication Erendira Beaulieu PA-C Work Phone: [employer] Start: 03-14-2021 End: 03-14-2021 Office outpatient visit 15 minutes Erendira Beaulieu PA-C Work Phone: [employer] Start: 11-12-2019 End: 11-12-2019 Office outpatient visit 15 minutes Erendira Beaulieu PA-C Work Phone: [employer] Start: 05-17-2019 End: 05-17-2019 Follow-up encounter Erendira Beaulieu PA-C Work Phone: [employer] Start: 03-24-2019 End: 03-24-2019 Patient encounter procedure Erendira Beaulieu PA-C Work Phone: [employer] Start: 12-13-2018 End: 12-13-2018 Patient encounter procedure Erendira Beaulieu PA-C Work Phone: [employer] Patient encounter status Sharyn martinez RN [employer]; [employer] Procedures Date Procedure Procedure Detail Performing Clinician Start: 08-26-2023 End: 08-26-2023 No Known Past Surgical History Kelsi Rossi MA Start: 08-27-2022 End: 08-27-2022 Depression screening Erendira J Beaulieu PA-C Work Phone: Start: 08-27-2022 End: 08-27-2022 Flu imm no admin doc alysha Erendira J Beaulieu PA-C Work Phone: Start: 08-27-2022 End: 08-27-2022 Scr dep neg, no plan reqd Erendira J Beaulieu PA-C Work Phone: Start: 12-13-2018 End: 12-13-2018 Doc of tobacco user Mayito Membreno Work Phone: Start: 12-13-2018 End: 12-13-2018 Scr dep neg, no plan reqd Mayito matthews MD Work Phone: Plan of Treatment Date Care Activity Detail Author Start: 02-02-2025 Patient encounter procedure Medical; EXTENDED RTN - 6 MO RTN [employer] Start: 02-Feb-2025 15:50-04:00 KATJA Beaulieu Appointment Request [employer] Start: 08-27-2022 Lipid panel [facility] [employer]; [employer]. Start: 08-27-2022 Comprehensive metabo lic panel [employer]; [employer]. Start: 03-24-2019 Ct limited/localized follow up study [facility] Start: 24-Mar-2019 Intent [employer]; [employer] Payers Date Payer Category Payer Unknown [id number] Unknown [id number] Unknown [employer] Social History Date Type Detail Facility Tobacco Use: Tobacco Use: ; Uses snuff. [employer]; [employer]. Male [employer]; [employer] Work Phone: Uses snuff [employer]; [employer] Work Phone: Summary Purpose Family History Hypertension Status:Active Comments:Father. Hypertension Status:Active Comments:Father. Hypertension Status:Active Comments:Father. Hypertension Status:Active Comments:Father. Hypertension Status:Active Comments:Father. Hypertension Status:Active Comments:Father. Hypertension Status:Active Comments:Father. Hypertension Status:Active Comments:Father. Hypertension Status:Active Comments:Father. Hypertension Status:Active Comments:Father. Advance Directives No Advanced Directives Records Found Additional Source Comments (unrecognized sect ion and content) No Status Records Found INFORMATION SOURCE (unrecogn ized section and content) DATE CREATED AUTHOR 05/21/2023 [facility] FOR RECORDS PERTAINING TO PATIENTS WHO ARE OR HAVE BEEN ENROLLED IN A CHEMICAL DEPENDENCY/SUBSTANCEABUSE PROGRAM, SOME INFORMATION MAY BE OMITTED. This clinical summary was aggregated from multiple sources. Caution should be exercised in using it in the provision of clinical care. This summary normalizes information from multiple sources, and as a consequence, information in this document may materially change the coding, format and clinical context of patient data. In addition, data may be omitted in some cases. CLINICAL DECISIONS SHOULD BE BASED ON THE PRIMARY CLINICAL RECORDS. [facility]. provides no warranty or guarantee of the accuracy or completeness of information in this document.
== END 2024-08-17 09:45 | disposition home or self-care (01) ==
LOC: ED 08:22 → MS3 08-16 12:04
PROVIDERS: Admitting Provider Internal Medicine; Emergency Provider Emergency Medicine; Visit Provider Internal Medicine
DX: F11.23 Opioid dependence with withdrawal (principal); I10 Essential (primary) hypertension; F17.200 Nicotine dependence, unspecified, uncomplicated; E66.811 Obesity, class 1; Z68.32 Body mass index [BMI] 32.0-32.9, adult
CPT/HCPCS: 36415; 80053; 80307; 82077; 85025; 97802; 99221; 99283; G0378